=== PATIENT | male | born 1975 | race American Indian/Alaskan Native ===

== ENCOUNTER 2017-11-04 10:08 | Emergency (ER) | payer OTHER ==
[2017-11-04] MEDS ORDERED: NACL 0.9% IR ONE (10:44)
[2017-11-04] MEDS ORDERED: MARCAINE 0.5% INFILTRATI NR (11:00)
[2017-11-04] MEDS ORDERED: ULTRAM PO ONE (11:18)
[2017-11-04] MEDS ORDERED: BOOSTRIX IM ONE (11:18)
--- NOTE | 2017-11-04 11:33 | Cat Scan Report ---
CT HEAD WITHOUT CONTRAST: HISTORY: Trauma. TECHNIQUE: Sequential 2.5mm CT images. COMPARISON: none. FINDINGS: Cerebral Parenchyma: Within normal limits. Cerebellum: Within normal limits. Brainstem: Within normal limits. Ventricles: Normal. Sella: Normal. Extra-axial spaces: Normal. Basal Cisterns: Normal. Intracranial Hemorrhage: None. Midline Shift: None. Calvarium: Normal. Mild right frontal soft tissue swelling is noted. Sinuses: Normal. Mastoid Air Cells: Normal. Visualized Orbits: Normal. IMPRESSION: Cranial CT scan within normal limits. Mild right frontal soft tissue swelling.
--- NOTE | 2017-11-04 11:34 | Cat Scan Report ---
CT SCAN OF THE CERVICAL SPINE: HISTORY: Trauma. TECHNIQUE: Contiguous 1.25 mm axial images of the cervical spine were obtained. Sagittal and coronal reformatted images. FINDINGS: Partial congenital fusion at C5-6 is suspected. There is no evidence for acute fracture, malalignment or bone lesion. Early degenerative disc disease at C3-4, C4-5 and C6-7 is noted. No central canal stenosis or high-grade neural foraminal narrowing is identified. IMPRESSION: No acute injury of the cervical spine is appreciated. Minor cervical spondylosis. 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
[2017-11-04] MEDS ORDERED: VITAMIN B-1 100 MG, FOLVITE 1 MG, INFUVITE 10 ML in NACL 0.9% 1000 ML 1,000 ML IV ONE (11:35)
[2017-11-04] MEDS ORDERED: VITAMIN B-1 PO SCH (12:00)
[2017-11-04] MEDS ORDERED: FOLVITE 1 MG, INFUVITE 10 ML in NACL 0.9% 1000 ML 1,000 ML IV ONE (12:00)
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
[2017-11-04 12:45] VITALS: BP 173/93
== END 2017-11-04 13:16 | disposition home or self-care (01) ==
LOC: ED 10:08
DX: S01.81XA Laceration without foreign body of other part of head, initial encounter (principal); S09.90XA Unspecified injury of head, initial encounter; W20.8XXA Other cause of strike by thrown, projected or falling object, initial encounter; Y93.89 Activity, other specified; Y92.89 Other specified places as the place of occurrence of the external cause; Y99.8 Other external cause status; F17.200 Nicotine dependence, unspecified, uncomplicated
CPT/HCPCS: 12052; 36415; 70450; 72125; 96365; 99284; G0480; J7030; 80320; 90715; J3411

== ENCOUNTER 2017-11-18 10:23 | Emergency (ER) | payer BC, OTHER ==
[2017-11-18 11:13] VITALS: BP 152/89
== END 2017-11-18 13:42 | disposition left against medical advice (07) ==
LOC: ED 10:23
DX: T14.8XXD Other injury of unspecified body region, subsequent encounter (principal); F17.200 Nicotine dependence, unspecified, uncomplicated; Z53.21 Procedure and treatment not carried out due to patient leaving prior to being seen by health care provider; X58.XXXD Exposure to other specified factors, subsequent encounter

== ENCOUNTER 2017-11-21 08:34 | Emergency (ER) | payer BC ==
[2017-11-21 08:42] VITALS: BP 170/94
--- NOTE | 2017-11-21 10:40 | Emergency Department Report ---
Suture/Staple Removal - HPI Chief Complaint: Laceration/Recheck/Suture Stated Complaint: SUTURE REMOVAL Time Seen by Provider: 11/21/17 10:00 When Sutures or Gracia Placed: >14 Days Ago (sutures placed on 11/04/2017) Wound Location: mid chin ED Review of Systems ROS: Stated complaint: SUTURE REMOVAL Other details as noted in HPI Comment: All other systems reviewed and negative Constitutional: no symptoms reported Respiratory: no symptoms reported Cardiovascular: denies: chest pain Gastrointestinal: denies: nausea, vomiting Musculoskeletal: denies: arthralgia Skin: other (suture removal to chin) Neurological: denies: headache ED Past Medical Hx - Past Medical History Previous Medical History?: Yes Hx Hypertension: Yes (no meds) Additional medical history: Chin lac - Surgical History Past Surgical History?: Yes Additional Surgical History: neck surgery - Family History Family history: no significant - Social History Smoking Status: Current Every Day Smoker Substance Use Type: Alcohol - Medications Home Medications: Home Medications Medication Instructions Recorded Confirmed Last Taken Type Sulfamethoxazole/Trimethoprim 1 each PO BID #14 tablet 11/04/17 Unknown Rx [Bactrim DS TAB] traMADol [Ultram] 50 mg PO Q6HR PRN #12 tablet 11/04/17 Unknown Rx Suture Removal Exam - Exam General: Vital signs noted. No distress. Alert and acting appropriately. This is 42-year-old male well-nourished well-developed in no acute distress. Patient is here for suture removal to his chin that was placed on 11/04/2017. Wound: No Pathologic Erythema, No Tenderness, No Drainage, No Pus, No Wound Dehiscence Other Systems: All other systems reviewed and are unremarkable. Sutures to chin from laceration on 11/04/2017 ED Course Vital Signs 11/21/17 08:40 Temperature 98 F Pulse Rate 85 Respiratory 16 Rate Blood Pressure 170/94 O2 Sat by Pulse 100 Oximetry - Reevaluation(s) Reevaluation #1: 11/21/17 10:44 6 sutures removed from chin. Laceration is well-healed. No signs of infection. ED Recheck MDM - Medical Decision Making ED course: Pt here for suture removal that was placed and 11/04/2017 to chin. 6 sutures removed from chin. Patient tolerated well. He said he took his Bactrim and Ultram that was given to him and completed. No signs of infection. Patient is stable and discharged home in stable condition to follow up with his primary care physician as needed Critical care attestation.: If time is entered above; I have spent that time in minutes in the direct care of this critically ill patient, excluding procedure time. ED Disposition Clinical Impression: Encounter for removal of sutures Disposition: DC- TO HOME OR SELFCARE Is pt being admited?: No Does the pt Need Aspirin: No Condition: Stable Instructions: Suture Removal (ED) Additional Instructions: Please keep affected area clean and dry. Referrals: PRIMARY CARE, [Primary Care Provider] - as needed Forms: Work/School Release Form(ED)
== END 2017-11-21 10:49 | disposition home or self-care (01) ==
LOC: ED 08:34
DX: S01.81XD Laceration without foreign body of other part of head, subsequent encounter (principal); W45.8XXD Other foreign body or object entering through skin, subsequent encounter; I10 Essential (primary) hypertension; F17.200 Nicotine dependence, unspecified, uncomplicated
CPT/HCPCS: 99282